=== PATIENT | male | born 1975 | race Caucasian/White ===

== ENCOUNTER 2019-06-24 11:34 | Outpatient (CLI) | payer OTHER, SELFPAY ==
--- NOTE | ~2019-06-24 | MR_ITS ---
EXAMINATION: MR shoulder LT w con DATE: 06/24/2019 13:59 INDICATION: Anterior left shoulder pain. TECHNIQUE: Magnetic resonance imaging (MRI) of the left shoulder was performed following intra-artic ular gadolinium contrast injection and without intravenous contrast. Details of the glenohumeral join t injection have been dictated separately. Sequences included axial T2-weighted FS FSE, axial T1-george ghted FS FSE, coronal oblique T1-weighted FS FSE, coronal oblique T2-weighted FSE, sagittal T2-weight ed FS FSE, sagittal T1-weighted FSE, and ABER (abduction external rotation) T1-weighted FS FSE. COMPARISON: None. FINDINGS: Coracoacromial arch: The acromion undersurface is curved in morphology (type II). The coracoacromial ligament is normal. M ild acromioclavicular osteoarthritis. There is mild marrow edema at the distal clavicle with mild sca lloped contour to the distal articular cortex of the clavicle on the T1 fat saturated images which ra ises the possibility of distal clavicular osteolysis. Rotator cuff: Mild distal supraspinatus tendinopathy without discrete tear. The infraspinatus, subscapularis and te res minor tendons are normal. Normal rotator cuff muscle bulk and signal. Biceps tendon, glenoid labrum and glenohumeral cartilage: Long head of the biceps tendon is normal. There is a small tear at the chondral labral interface at t he 4:30-5:30 position of the anteroinferior glenoid best appreciated on oblique coronal series 6, stuart ges 12-13 and on ABER series 13, images 16-17. There is a normal anterosuperior sublabral foramen. Sm all amount of contrast extends into a cleft along the base of the anterosuperior glenoid labrum which curves medially most consistent with a normal labral sulcus. Bones and other: Bone alignment is normal. No fracture or pathologic marrow replacing process. Appears grossly normal although evaluation is limited on non arthrographic studies. No loose osteochondral bodies within th e contrast enhanced joint space. No abnormal fluid signal in the subacromial/subdeltoid bursa to sugg est bursitis. IMPRESSION: 1. Small tear/delamination at the anteroinferior chondrolabral junction. 2. Mild acromioclavicular osteoarthritis with marrow edema and suggestion of mild erosive change at t he lateral head of the clavicle which can be seen with distal clavicular osteolysis. Reviewed, dictated and finalized at location A. IMPRESSION: 1. Small tear/delamination at the anteroinferior chondrolabral junction. 2. Mild acromioclavicular osteoarthritis with marrow edema and suggestion of mi ld erosive change at the lateral head of the clavicle which can be seen with di stal clavicular osteolysis.
--- NOTE | ~2019-06-24 | XR_ITS ---
EXAMINATION: XR fl inj shoulder LT - MR/CT DATE: 06/24/2019 12:27 INDICATION: Anterior left shoulder pain TECHNIQUE: A time-out was performed to verify the patient's name, date of , and procedure to b e performed. The procedure including the risks, benefits, and alternatives was discussed with the pat ient. Risks discussed included bleeding and infection. The patient understood the risks and agreed to proceed. The skin overlying the rotator cuff interval the left glenohumeral joint was prepped and d raped in usual sterile fashion. Anesthetic was administered with 1% lidocaine subcutaneously. A 22 G needle was advanced under fluoroscopic guidance into the joint. Injection of 0.6 mL of Omnipaque 2 40 confirmed intra-articular position of the needle. Subsequently, injectate consisting of 12 mL of 3:1 mixture of sterile saline:Omnipaque 240 mixed 200:1 with 529 mg/mL Multihance gadolinium contrast was injected. Washout of contrast was seen confirming intra-articular administration. The needle was removed and the entry site was cleaned and dressed. There were no immediate complications. Fluorosc opy exposure time was 3.2 minutes. The total number of images was 117. FINDINGS: Real-time fluoroscopy demonstrates the needle and contrast in the left glenohumeral joint. IMPRESSION: 1. Left glenohumeral joint injection of contrast for subsequent MRI arthrogram which will be dictated separately. Reviewed, dictated and finalized at location A.
== END 2019-06-24 11:35 | disposition home or self-care (01) ==
LOC: ANHIMG 11:35
PROVIDERS: PCP Family Medicine; Visit Provider Orthopaedic Surgery
DX: M19.012 Primary osteoarthritis, left shoulder (principal)
CPT/HCPCS: 23350; 73222; 77002; A9577; Q9966

== ENCOUNTER 2020-09-17 16:13 | Outpatient (CLI) | payer OTHER, SELFPAY ==
--- NOTE | ~2020-09-17 | XR_ITS ---
EXAMINATION: XR chest 2V 09/17/2020 16:25 INDICATION: Cough and congestion for 2 weeks PROCEDURE: 2 view chest COMPARISON: No prior studies for comparison. FINDINGS: The lungs are clear. The cardiomediastinal silhouette is within normal limits. There are no pleural effusions. There is no pneumothorax suspected. IMPRESSION: 1: NO ACUTE CARDIOPULMONARY DISEASE. Reviewed, dictated and finalized at location A.
== END 2020-09-17 16:14 | disposition home or self-care (01) ==
PROVIDERS: PCP Family Medicine; Visit Provider Physician Assistant
DX: R05 Cough (principal)
CPT/HCPCS: 71046

== ENCOUNTER 2022-08-09 09:31 | Outpatient (RCR) | payer OTHER, SELFPAY ==
[2022-08-09 09:36] VITALS: BMI 31.8
== END 2022-10-24 09:11 | disposition home or self-care (01) ==
LOC: ANHDMC 09:31
PROVIDERS: PCP Family Medicine; Visit Provider Physician Assistant
DX: E66.9 Obesity, unspecified (principal); Z71.3 Dietary counseling and surveillance
CPT/HCPCS: 97802